=== PATIENT | female | born 1945 | race Caucasian/White ===

== ENCOUNTER 2018-02-20 07:42 | Day surgery (SDC) | payer MEDICARE ==
[~2018-02-20] VITALS: Ht 165.1 cm; Wt 79.4 kg
[~2018-02-20 07:42] MED LIST: ACCOLATE10 MG PO; ACIPHEX20 MG OR; ADVIL200 MG OR; AMLODIPINE5 MG PO; ASA LO-DOSE81 MG OR; CADUET10 MG/40 M OR; CINNAMON500 MG OR; CIPRO500 MG OR; CO Q 1010 MG OR; CO Q-10100 MG OR; D 2000 OR; FISH OIL1000 MG PO; FISH OIL1200 MG PO; LEVOTHYROXIN75 MCG PO; LORTAB 1010 MG PO; MAG-G500 MG OR; MELOXICAM7.5 MG PO; METFORMIN1000 MG OR; METFORMIN1000 MG PO; METFORMIN500 MG PO; METOPROL TAR100 MG OR; METOPROL TAR25 MG PO; MULTI VIT PO; OSTEO BI-FLE PO; PRAVASTATIN10 MG PO; PREVENT OR; PRILOSEC20 MG OR; PRILOSEC20 MG/CAP PO; QUINAPRIL20 MG OR; QUINAPRIL5 MG PO; SERTRALINE50 MG PO; SIMVASTATIN40 MG OR; SYNTHROID75 MCG OR; TOPROL XL OR; TRAMADOL HCL50 MG PO; VIT C & E OR; XANAX XR0.5 MG PO; XANAX0.5 MG OR; ZOLOFT100 MG OR; ZOLOFT100 MG PO; [UNRECOGNIZED DRUG - OTHER] OR; [UNRECOGNIZED DRUG - OTHER] OR
[2018-02-20] MEDS ORDERED: HYDRALAZINE25 MG PO (08:30)
[2018-02-20] MEDS ORDERED: XANAX0.5 MG PO (08:31)
[2018-02-20] MEDS ORDERED: EQ ASA CHLD81 MG PO (08:32)
[2018-02-20] MEDS ORDERED: VITAMIN B CO PO (08:33)
[2018-02-20] MEDS ORDERED: BENICAR40 MG PO (08:33)
[2018-02-20] MEDS ORDERED: TYLENOL 8 HOUR650 MG PO (08:34)
[2018-02-20 10:01] VITALS: BP 158/74
== END 2018-02-20 10:20 | disposition home or self-care (01) ==
LOC: ENDO 07:42 → ORM 09:00 → ENDO 10:20
PROVIDERS: ATTEND Surgery
PROC: 0DJ08ZZ Inspection of Upper Intestinal Tract, Via Natural or Artificial Opening Endoscopic (ICD-10-PCS; principal; 2018-02-20)
DX: R13.10 Dysphagia, unspecified (principal); Q39.8 Other congenital malformations of esophagus; K44.9 Diaphragmatic hernia without obstruction or gangrene; E11.9 Type 2 diabetes mellitus without complications

== ENCOUNTER → 2018-07-18 | Outpatient (REF) | payer MEDICARE ==
[~2018-07-18] MED LIST changes: +BENICAR40 MG PO; +EQ ASA CHLD81 MG PO; +HYDRALAZINE25 MG PO; +TYLENOL 8 HOUR650 MG PO; +VITAMIN B CO PO; +XANAX0.5 MG PO
[2018-07-18 10:01] LABS: ANION GAP 14 (6-22 (CALC)); BUN 14 mg/dL (8-23); BUN/CREATININE RATIO 18 (12-20 (CALC)); CARBON DIOXIDE 29 mmol/l (22-30); CHLORIDE 93 mmol/l (95-108); CREATININE 0.8 mg/dL (0.5-1.0); GFR > 60 ML/MIN (>=60 (CALC)); GFR FOR AFR.AMER. > 60 ML/MIN (>=60 (CALC)); POTASSIUM 3.6 mmol/l (3.5-5.1); SODIUM 133 mmol/l (137-146)
== END | disposition home or self-care (01) ==
LOC: LAB 08:34
PROVIDERS: Internal Medicine Endocrinology, Diabetes & Metabolism; ATTEND Nurse Practitioner Family
DX: I10 Essential (primary) hypertension (principal); E11.40 Type 2 diabetes mellitus with diabetic neuropathy, unspecified

== ENCOUNTER 2019-01-17 15:57 | Observation (INO) | payer MEDICARE ==
[~2019-01-17] VITALS: Ht 165.1 cm; Wt 80.0 kg
[2019-01-17 17:23] LABS: HEMATOCRIT 37.9 % (37.0-47.0); HEMOGLOBIN 12.9 g/dl (12.0-16.0); IMMATURE GRANULOCYTES 0.3 % (0.0-5.0); MEAN CELL VOLUME 87.1 fL CALC (80.0-100.0); MEAN CORPUSCULAR HGB 29.7 pG CALC (26.0-32.0); NEUT# 4.44 thou/uL (2.00-7.15); RED BLOOD COUNT 4.35 mill/uL (4.20-5.60); RED CELL DISTRI WIDTH 12.6 % (11.5-15.5)
[2019-01-17 17:34] LABS: ALBUMIN 4.9 g/dL (3.2-5.0); ALKALINE PHOSPHATASE 60 u/l (38-126); ANION GAP 16 (6-22 (CALC)); BILIRUBIN, TOTAL 0.5 mg/dL (0.0-1.4); BUN 16 mg/dL (8-23); BUN/CREATININE RATIO 21 (12-20 (CALC)); CARBON DIOXIDE 29 mmol/l (22-30); CHLORIDE 86 mmol/l (95-108); CREATININE 0.8 mg/dL (0.5-1.0); GFR > 60 ML/MIN (>=60 (CALC)); GFR FOR AFR.AMER. > 60 ML/MIN (>=60 (CALC)); LIPASE 35 u/l (23-300); POTASSIUM 3.1 mmol/l (3.5-5.1); SGOT/AST 22 u/l (9-36); SODIUM 127 mmol/l (137-146); TOTAL PROTEIN 8.2 g/dL (6.3-8.2)
[2019-01-17 19:26] LABS: URINE BILIRUBIN - DIPSTICK NEGATIVE (NEGATIVE); URINE BLOOD DIPSTICK NEGATIVE (NEGATIVE); URINE COLOR YELLOW; URINE GLUCOSE - DIPSTICK NEGATIVE (NEGATIVE); URINE KETONE NEGATIVE (NEGATIVE); URINE NITRITE - DIPSTICK NEGATIVE (Negative); URINE PROTEIN - DIPSTICK NEGATIVE (NEG-TRACE); URINE SPECIFIC GRAVITY <=1.005; URINE UROBILINOGEN - DIPSTICK 0.2 E.U./dL (0.2)
[2019-01-17 19:36] LABS: URINE LEUK ESTERASE SMALL (NEGATIVE)
[2019-01-17 19:47] LABS: URINE SQUAMOUS EPITHELIAL CELL FEW EPI/hpf (0-FEW)
[2019-01-17 21:25] VITALS: BP 149/79
== END 2019-01-17 21:25 | disposition left against medical advice (07) ==
LOC: ED 15:57 → ED-I 19:00 → ED 19:32 → MS2 19:33
PROVIDERS: Family Medicine; ADMIT Internal Medicine; ATTEND Internal Medicine
DX: E87.1 Hypo-osmolality and hyponatremia (principal); E87.6 Hypokalemia; I10 Essential (primary) hypertension; E11.40 Type 2 diabetes mellitus with diabetic neuropathy, unspecified; Z79.84 Long term (current) use of oral hypoglycemic drugs; R82.71 Bacteriuria